=== PATIENT | female | born 1965 | race Caucasian/White ===

== ENCOUNTER 2023-10-11 14:10 | Outpatient (CLI) | payer BC | END 2023-10-11 14:11 | disposition home or self-care (01) | LOC: CSHULT 14:10 | PROVIDERS: ATTEND Student in an Organized Health Care Education/Training Program | DX: R80.9 Proteinuria, unspecified (principal); I10 Essential (primary) hypertension; R10.31 Right lower quadrant pain; R10.32 Left lower quadrant pain | CPT/HCPCS: 76770 ==

== ENCOUNTER 2023-12-02 08:13 | Outpatient (CLI) | payer BC | END 2023-12-02 08:14 | disposition home or self-care (01) | LOC: CSHSLEEP 08:13 | PROVIDERS: ATTEND Internal Medicine Critical Care Medicine | DX: G47.33 Obstructive sleep apnea (adult) (pediatric) (principal); R53.83 Other fatigue | CPT/HCPCS: 95800 ==